=== PATIENT | female | born 1960 | race Caucasian/White ===

== ENCOUNTER 2016-10-17 06:11 | Emergency (ER) | payer OTHER ==
--- NOTE | 2016-10-17 09:10 | ER ---
ADMIT: 10/17/2016 RM/LOC: ER [facility] MR#: [id number] [address] [id number] [address] [place] [address] Emergency Room Report SEX: F AGE: 56 : 1960 DATE: 10/17/2016 TIME: 0611 hours. Please refer to Dr. Live's T-sheet for complete H and P. HISTORY OF PRESENT ILLNESS: Briefly, I am following up on her labs. The patient is a 56-year-old, who came in with abdominal pain. She has a history of methamphetamine abuse. She smokes a pack a day. She points to her epigastric toward her back. CBC came back normal except white count 3.7. Chemistries normal except potassium 3.6, glucose 138, alk phos 157, lactate was 2.6, lipase was normal, BNP was normal, CRP was 0.3, CK 77, troponin negative. UA normal. EKG was sinus rhythm, rate 93, no changes. Chest x- ray, no acute disease. She was feeling much better after she received Toradol and Zofran and Protonix. I had a long discussion with her, was ready for discharge. ASSESSMENT: 1. Generalized abdominal pain. 2. Gastroesophageal reflux disease. 3. Nicotine abuse. PLAN: Stop smoking. Return if worse. Zantac. Follow up with Dr. Hernandez this week to recheck. Elijah Cloud MD/ pat JOB #: [id number] CC: Augusto Live MD, Attending Physician
== END 2016-10-17 07:53 | disposition home or self-care (01) ==
LOC: ER 06:11
DX: K21.9 Gastro-esophageal reflux disease without esophagitis (principal); R10.84 Generalized abdominal pain; F17.210 Nicotine dependence, cigarettes, uncomplicated; I10 Essential (primary) hypertension; Z98.51 Tubal ligation status